=== PATIENT | male | born 1960 | race Caucasian/White ===

== ENCOUNTER 2021-03-28 11:23 | Day surgery (SDC) | payer OTHER ==
[~2021-03-28] VITALS: Ht 180.3 cm; Wt 89.6 kg
[2021-03-28] VITALS (12 sets, daily range): BP systolic 114–141; BP diastolic 61–88
[2021-03-28] MEDS ORDERED: LIDOcaine/PRILOcaine 5gm cream TP ONE (11:50)
[2021-03-28] MEDS ORDERED: diphenhydrAMINE 25mg capsule PO PRN (11:50)
[2021-03-28] MEDS ORDERED: normal saline 1,000 ML IV SCH (11:50)
[2021-03-28] MEDS ORDERED: LORazepam 0.5 MG tablet PO PRN (11:50)
[2021-03-28] MEDS ORDERED: nitroGLYCERIN-Tridil 50MG/D5W 250 ML IV ONE (12:27)
[2021-03-28] MEDS ORDERED: verapamil 2.5 mg/ml inj IV ONE (12:27)
[2021-03-28] MEDS ORDERED: fentaNYL/PF 50MCG/1 ML 2ML syringe ONE (12:28)
[2021-03-28] MEDS ORDERED: LIDOcaine 1% (10mg/ml)w/preservative injection 20ml MDV ONE (12:28)
[2021-03-28] MEDS ORDERED: midazolam 1 mg/ML 2ml injection ONE (12:28)
[2021-03-28] MEDS ORDERED: iohexol 350MG/ML 100ml bottle IV ONE (12:28)
[2021-03-28] MEDS ORDERED: heparin 1,000unit/ml 10ml vial 10 ML ONE (12:28)
[2021-03-28] MEDS ORDERED: LISI-643 PO (12:40)
[2021-03-28] MEDS ORDERED: GEMF600T89 PO (12:40)
[2021-03-28] MEDS ORDERED: iohexol 350 MG/ML 50ML vial IV ONE (13:27)
[2021-03-28] MEDS ORDERED: ticagrelor 90mg tablet ONE (13:36)
[2021-03-28] MEDS ORDERED: aspirin 325mg tablet ONE (13:38)
[2021-03-28] MEDS ORDERED: OXAZEpam 15mg capsule PO PRN (14:15)
[2021-03-28] MEDS ORDERED: ondansetron/PF 4mg/2ml inj IV PRN (14:15)
[2021-03-28] MEDS ORDERED: proCHLORperazine 10 MG/2 ml inj IV PRN (14:15)
== END 2021-03-28 17:57 | disposition home or self-care (01) ==
LOC: SSTAY O 11:23
PROVIDERS: ATTEND Internal Medicine Interventional Cardiology
DX: R94.39 Abnormal result of other cardiovascular function study (principal); I25.10 Atherosclerotic heart disease of native coronary artery without angina pectoris; I10 Essential (primary) hypertension; E03.9 Hypothyroidism, unspecified; E78.5 Hyperlipidemia, unspecified; Z86.010 Personal history of colon polyps; Z79.899 Other long term (current) drug therapy
CPT/HCPCS: 93005; 93458; 99152; 99153; C1725; C1751; C1769; C1874; C1894; C9600; J1644; J2001; J2250; J3010; Q9967; A4620; A5120; J3490